=== PATIENT | male | born 1985 | race Caucasian/White ===

== ENCOUNTER 2022-02-23 10:33 | Emergency (ER) | payer MEDICAID ==
[~2022-02-23] VITALS: Ht 172.7 cm; Wt 108.9 kg
[2022-02-23 10:33] VITALS: BP_SYST 161
--- NOTE | 2022-02-23 10:33 | NUR ---
BROUGHT IMMEDIATELY BACK TO BED #[address] BARKER CALLED TO BEDSIDE. REPORT GIVEN TO MAXI
[2022-02-23] MEDS ORDERED: LR 1,000 ML IV ONE ×2 (10:45→11:00)
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
[2022-02-23] MEDS ORDERED: MORPHINE 4 MG INJ. 4 MG/ML VIAL IVP ONE (11:00)
[2022-02-23 11:06] LABS: BASOPHILS % (AUTO) 0.4 % (0.0-2.0); EOSINOPHILS % (AUTO) 0.6 % (0.0-4.0); HEMATOCRIT 45.2 % (36-54); HEMOGLOBIN 15.7 g/dL (14.0-18.0); LYMPHOCYTES # (AUTO) 2.2 K/uL (1.0-5.5); LYMPHOCYTES % (AUTO) 31.8 % (20.5-51.5); MEAN CORPUSCULAR HEMOGLOBIN 29 pg (27-31); MEAN CORPUSCULAR HGB CONC 35 % (32-36); MEAN CORPUSCULAR VOLUME 83 fL (79.0-98.0); MONOCYTES # (AUTO) 0.6 K/uL (0.0-1.0); MONOCYTES % (AUTO) 8.4 % (1.7-9.3); NEUTROPHILS # (AUTO) 4.1 K/uL (1.8-7.7); NEUTROPHILS % (AUTO) 58.8 % (40.0-70.0); PLATELET COUNT (AUTO) 195 K/uL (130-430); RED BLOOD CELL COUNT(AUTO) 5.42 MIL/uL (4.2-6.2); RED CELL DISTRIBUTION WIDTH 12.7 % (9.0-15.0); WHITE BLOOD COUNT (AUTO) 7.1 K/uL (4.8-10.8)
--- NOTE | 2022-02-23 11:08 | NUR ---
DR BARKER SPOKE WITH DR JEAN AT [facility] AND ACCEPTED PT TO [facility].
[2022-02-23 11:13] LABS: ANION GAP 8 (5-15); CALCIUM 8.4 mg/dL (8.4-11.0); CHLORIDE 101 mmol/L (98-107); CREATININE 1.09 mg/dL (0.55-1.30); GLUCOSE 167 mg/dL (70-99); POTASSIUM 3.6 mmol/L (3.5-5.1); UREA NITROGEN, BLOOD 13 mg/dL (8-21)
[2022-02-23 11:14] LABS: PROTHROMBIN TIME 10.4 SECS (9.5-12.5)
[2022-02-23 11:15] LABS: GFR AFRICAN AMERICAN 98 mL/min (>90)
[2022-02-23 11:18] LABS: ALANINE AMINOTRANSFERASE 38 U/L (12-78); ASPARTATE AMINOTRANSFERASE 20 U/L (10-37); TOTAL BILIRUBIN 1.1 mg/dL (0.0-1.0)
--- NOTE | 2022-02-23 11:20 | NUR ---
SPOKE WITH PTS LOLA AND GIVEN ALL INFORMATION NEEDED. INFORMED OF PT GOING TO [facility] AND ADDRESS/PHONE NUMBER GIVEN. PT ABLE TO SPEAK WITH .
[2022-02-23] MEDS ORDERED: DIPHTH,PERTUSS(ACELL),TET VAC 0.5 ML VIAL (Tdap) I.M. ONE (11:30)
[2022-02-23 11:49] VITALS: BP_SYST 130
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
--- NOTE | 2022-02-23 11:58 | NUR ---
Patient given written and verbal discharge instructions and verbalizes understanding. [facility] Opportunity for questions provided and answered. Medication side effect fact sheet provided.
== END 2022-02-23 11:58 | disposition short-term general hospital (02) ==
LOC: SED 10:33
DX: T20.20XA Burn of second degree of head, face, and neck, unspecified site, initial encounter (principal); T23.102A Burn of first degree of left hand, unspecified site, initial encounter; T23.101A Burn of first degree of right hand, unspecified site, initial encounter; Z79.899 Other long term (current) drug therapy; W86.8XXA Exposure to other electric current, initial encounter; Y93.89 Activity, other specified; Y92.89 Other specified places as the place of occurrence of the external cause; Y99.8 Other external cause status
CPT/HCPCS: 99291; 96374; 80053; 82550; 83880; 85025; 85610; 85730; 84484; 36415; 93005; 71045; 90715; 90471; J2270